=== PATIENT | female | born 1975 | race Caucasian/White ===

== ENCOUNTER 2016-07-23 01:54 | Emergency (ER) | payer OTHER ==
[~2016-07-23] VITALS: Ht 154.9 cm; Wt 73.0 kg
[2016-07-23] MEDS ORDERED: ALBUTEROL FS 2.5 MG/0.5 ML VIAL.NEB ONE (02:04)
[2016-07-23] MEDS ORDERED: ALBUTEROL FS 2.5 MG/0.5 ML VIAL.NEB NEB ONE (02:30)
[2016-07-23 02:48] VITALS: BP 128/79
== END 2016-07-23 02:48 | disposition home or self-care (01) ==
LOC: ER 01:55
DX: J98.01 Acute bronchospasm (principal); J45.909 Unspecified asthma, uncomplicated; F32.9 Major depressive disorder, single episode, unspecified; F41.9 Anxiety disorder, unspecified; F17.200 Nicotine dependence, unspecified, uncomplicated; Z90.89 Acquired absence of other organs; Z98.890 Other specified postprocedural states
CPT/HCPCS: 71010; 94640; 99283; A4606 ×2; Z7610

== ENCOUNTER 2020-11-26 09:55 | Emergency (ER) | payer MEDICAID, OTHER ==
[~2020-11-26] VITALS: Ht 154.9 cm; Wt 70.8 kg
[2020-11-26 10:14] VITALS: BP 124/84
[2020-11-26] MEDS ORDERED: IBUP-1955 PO (10:51)
[2020-11-26] MEDS ORDERED: diphenhydrAMINE HCL 25 MG CAPSULE ONE (10:56)
[2020-11-26] MEDS ORDERED: METOCLOPRAMIDE HCL 10 MG TABLET ONE (10:57)
[2020-11-26] MEDS ORDERED: IBUPROFEN 600 MG TABLET ONE (10:57)
[2020-11-26] MEDS ORDERED: IBUPROFEN 600 MG TABLET PO ONE (11:00)
[2020-11-26] MEDS ORDERED: diphenhydrAMINE HCL 25 MG CAPSULE PO ONE (11:00)
[2020-11-26] MEDS ORDERED: METOCLOPRAMIDE HCL 10 MG TABLET PO ONE (11:00)
--- NOTE | 2020-11-26 11:09 | NUR ---
Patient a/ox4, breathing even an dunlabored, no sob noted, ambulagtory with steady gait. Patient discharged to home in stable condition. Written and verbal after care instructions given. Patient verbalizes understanding of instruction.
== END 2020-11-26 11:10 | disposition home or self-care (01) ==
LOC: ER 10:02
DX: R51.9 Headache, unspecified (principal); J45.909 Unspecified asthma, uncomplicated; F32.9 Major depressive disorder, single episode, unspecified; F41.9 Anxiety disorder, unspecified; F10.10 Alcohol abuse, uncomplicated; F17.200 Nicotine dependence, unspecified, uncomplicated; Y90.9 Presence of alcohol in blood, level not specified; Z90.89 Acquired absence of other organs; Z98.890 Other specified postprocedural states
CPT/HCPCS: 99284; J8597; Q0163

== ENCOUNTER 2024-07-21 09:41 | Emergency (ER) | payer MEDICAID ==
[~2024-07-21] VITALS: Ht 154.9 cm; Wt 60.8 kg
[~2024-07-21 09:41] MED LIST: IBUP-1955 PO
[2024-07-21 09:54] VITALS: BP 111/68; TEMP 98.7; O2SAT 97
[2024-07-21] MEDS ORDERED: BENZONATATE 100 MG CAPSULE PO ONE (10:22)
[2024-07-21] MEDS ORDERED: IBUPROFEN 600 MG TABLET ONE (10:22)
[2024-07-21] MEDS: IBUPROFEN 600 MG TABLET PO ONE (10:27)
[2024-07-21] MEDS: BENZONATATE 100 MG CAPSULE PO PRN (10:27)
[2024-07-21] MEDS ORDERED: BENZ-13 PO (10:41)
== END 2024-07-21 10:59 | disposition home or self-care (01) ==
LOC: ER 09:41
DX: J45.909 Unspecified asthma, uncomplicated (principal); R11.0 Nausea; F17.200 Nicotine dependence, unspecified, uncomplicated; F32.A Depression, unspecified; F41.9 Anxiety disorder, unspecified; Z90.49 Acquired absence of other specified parts of digestive tract

== ENCOUNTER 2024-10-07 16:40 | Emergency (ER) | payer MEDICAID ==
[~2024-10-07] VITALS: Ht 154.9 cm; Wt 62.1 kg
[~2024-10-07 16:40] MED LIST changes: +BENZ-13 PO
[2024-10-07] MEDS ORDERED: PANTOPRAZOLE 40 MG VIAL ONE (18:25)
[2024-10-07] MEDS ORDERED: KETOROLAC TROMETHAMINE INJ 30 MG/ML VIAL ONE (18:25)
[2024-10-07] MEDS ORDERED: ONDANSETRON HCL/PF 4 MG/2 ML VIAL ONE ×2 (18:25→20:59)
[2024-10-07] MEDS: IV NS 0.9% 1,000 ML IV ONE (18:31)
[2024-10-07] MEDS: PANTOPRAZOLE 40 MG VIAL IV ONE (18:32)
[2024-10-07] MEDS: KETOROLAC TROMETHAMINE INJ 30 MG/ML VIAL IV ONE (18:36)
[2024-10-07] MEDS: ONDANSETRON HCL/PF - ER 4 MG/2 ML VIAL IV ONE ×2 (18:36→21:12)
[2024-10-07 18:55] LABS: BASOPHILS # (AUTO) 0.1 K/uL (0.0-0.2); BASOPHILS % (AUTO) 0.5 % (0.0-2.0); CALCIUM, SERUM 9.2 mg/dL (8.5-10.1); CARBON DIOXIDE 28 mmol/L (21-32); CHLORIDE 105 mmol/L (98-107); CREATININE 0.6 mg/dL (0.6-1.3); EOSINOPHILS % (AUTO) 0.1 % (0.0-6.0); GLUCOSE 94 mg/dL (74-106); HEMATOCRIT 46 % (33-45); LYMPHOCYTES # (AUTO) 2.3 K/uL (0.8-4.8); LYMPHOCYTES % (AUTO) 18.3 % (20.0-44.0); MEAN CORPUSCULAR HEMOGLOBIN 29 PG (26.0-33.0); MEAN CORPUSCULAR HGB CONC 33 g/dl (31.0-36.0); MEAN CORPUSCULAR VOLUME 88 fL (82-100); MONOCYTES # (AUTO) 0.8 K/uL (0.1-1.30); MONOCYTES % (AUTO) 6.3 % (2.0-12.0); NEUTROPHILS # (AUTO) 9.4 K/uL (1.8-8.9); NEUTROPHILS % (AUTO) 74.8 % (43.0-81.0); PLATELET COUNT (AUTO) 363 K/uL (150-450); POTASSIUM 3.2 mmol/L (3.5-5.1); RED BLOOD CELL COUNT(AUTO) 5.19 MIL/uL (4.0-5.2); RED CELL DISTRIBUTION WIDTH 13.2 % (11.5-15.0); SODIUM SERUM 141 mmol/L (136-145); UREA NITROGEN, BLOOD 12 mg/dL (7-18); WHITE BLOOD COUNT (AUTO) 12.5 K/uL (4.3-11.0)
[2024-10-07 19:10] LABS: ALANINE AMINOTRANSFERASE 16 U/L (12-78); ALBUMIN 4.1 g/dL (3.4-5.0); ALCOHOL, BLOOD < 3 mg/dL (0-10); ALKALINE PHOSPHATASE 65 U/L (46-116); ASPARTATE AMINOTRANSFERASE 14 U/L (15-37); BILIRUBIN,TOTAL 1.6 mg/dL (0.2-1.0); NT-PRO BNP 182 pg/mL (0-125)
[2024-10-07 20:11] LABS: APPEARANCE,URINE CLEAR (CLEAR); BILIRUBIN,URINE NEGATIVE (NEGATIVE); BLOOD, URINE TRACE-INTA Ery/uL (NEGATIVE); COLOR,URINE YELLOW (YELLOW); KETONES,URINE 3+ mg/dL (NEGATIVE); LEUKOCYTE ESTERASE ,URINE NEGATIVE (NEGATIVE); NITRITE, URINE NEGATIVE (NEGATIVE); PROTEIN,URINE 1+ mg/dl (NEGATIVE); UGLUCOSE NEGATIVE (NEGATIVE); UROBILINOGEN,URINE 0.2 EU/dL (0.2)
[2024-10-07 20:14] LABS: PREGNANCY TEST URINE QUAL NEGATIVE (NEGATIVE)
[2024-10-07 20:15] VITALS: TEMP 98.5
[2024-10-07 20:17] LABS: ADD URINE CULTURE NO; BACTERIA,URINE Rare /HPF (None Seen); MUCUS,URINE Many /LPF (None Seen); WBC,URINE 0-2 /HPF (0-3)
[2024-10-07] MEDS ORDERED: IOHEXOL-300 100 ML VIAL IV ONE (20:24)
[2024-10-07] MEDS ORDERED: IV NS 0.9% 250 ML IV ONE (20:24)
[2024-10-07 20:31] LABS: AMPHETAMINE, URINE NEGATIVE (NEGATIVE); BARBITURATE, URINE NEGATIVE (NEGATIVE); BENZODIAZEPINE, URINE NEGATIVE (NEGATIVE); COCCAINE, URINE NEGATIVE (NEGATIVE); OPIATE, URINE NEGATIVE (NEGATIVE); PHENCYCLIDINE SCREEN,URINE NEGATIVE (NEGATIVE)
[2024-10-07 20:33] LABS: CANNABINOID, URINE POSITIVE (NEGATIVE)
[2024-10-07] MEDS ORDERED: METO-295 PO (21:27)
[2024-10-07] MEDS ORDERED: PANT20TA2 PO (21:27)
[2024-10-07 21:28] VITALS: BP 144/91; O2SAT 97
[2024-10-07] MEDS ORDERED: METOCLOPRAMIDE HCL 10 MG/2 ML VIAL IV ONE (21:30)
== END 2024-10-07 22:03 | disposition home or self-care (01) ==
LOC: ER 16:50
DX: R11.10 Vomiting, unspecified (principal); F17.200 Nicotine dependence, unspecified, uncomplicated; M79.10 Myalgia, unspecified site; J45.909 Unspecified asthma, uncomplicated; Z90.49 Acquired absence of other specified parts of digestive tract; Z79.899 Other long term (current) drug therapy
CPT/HCPCS: 99285; 96374; 96361; 96375; 93005; 71045; 96376; 74177; 85025; 83690; 84703; 81001; 36415; 80053; 84484; 83880; 80320; 80307; J1885; J2405 ×4; J7030; J7050; J2470; Q9967; G0480